=== PATIENT | male | born 1960 | race Caucasian/White ===

== ENCOUNTER 2023-02-15 20:36 | Emergency (ER) | payer OTHER, SELFPAY ==
[2023-02-15 20:42] VITALS: BP 144/77; BP 148/76; PULSE 91; PULSE 96; RESP 16; TEMP 36.3; O2SAT 98; O2SAT 99; BMI 23.7
--- NOTE | 2023-02-15 22:25 | PC.NURSE ---
Patient stated he was tired of waiting on the doctor then walked out of the ER. Tried to explain situation to patient him and visitor just continued to walk out.
== END 2023-02-15 22:28 | disposition left against medical advice (07) ==
PROVIDERS: Emergency Provider Emergency Medicine
DX: S01.312A Laceration without foreign body of left ear, initial encounter (principal); Y09 Assault by unspecified means
CPT/HCPCS: 99281; 99284